=== PATIENT | female | born 1940 | race Caucasian/White ===

== ENCOUNTER 2016-10-02 21:28 | Emergency (ER) | payer OTHER ==
[~2016-10-02] VITALS: Ht 162.5 cm; Wt 113.9 kg
[~2016-10-02 21:28] MED LIST: AMOXICOT500 MG PO; APRESOLINE PO; ASPIRIN81 M1 PO; BACTRIM DS 8001 TA1 PO; CARVEDILOL25 MG PO; CENTRUM SILVER1 TA1 PO; COREG25 MG PO; COZAAR25 MG PO; DITROPAN XL10 MG PO; DITROPAN5 MG PO; DURICEF500 MG PO; DYAZIDE 25 MG-31 CAP PO; GLUCOTROL XL10 MG PO; HYDRALAZINE HCL25 MG PO; IMDUR30 MG PO; LASIX40 MG PO; LISINOPRIL20 MG PO; MEDROL DOSEPAK4 MG PO; MULTIVITAMIN1 CTB PO; MYCOLOG CREAM 115 GM; OCUVITE1 TA1 PO; PERCOCET 325 MG1 TA2 PO; PRESERVISION1 SGL PO; PRINIVIL20 MG PO; TORADOL10 MG PO; ULTRAM50 MG PO; VICODIN 5/500 505 MG PO; VOLTAREN50 M1 PO; XANAX XR0.5 MG PO; ZOLOFT25 MG PO
[2016-10-02 21:39] VITALS: BP 167/85
== END 2016-10-02 22:47 | disposition home or self-care (01) ==
LOC: ED 21:28
DX: S80.11XA Contusion of right lower leg, initial encounter (principal); E11.9 Type 2 diabetes mellitus without complications; Z90.710 Acquired absence of both cervix and uterus; Z96.653 Presence of artificial knee joint, bilateral; Z79.899 Other long term (current) drug therapy; Z79.82 Long term (current) use of aspirin; Z88.5 Allergy status to narcotic agent; Z88.8 Allergy status to other drugs, medicaments and biological substances; X58.XXXA Exposure to other specified factors, initial encounter; Y93.89 Activity, other specified; Y92.89 Other specified places as the place of occurrence of the external cause; Y99.9 Unspecified external cause status

== ENCOUNTER 2017-07-15 21:19 | Emergency (ER) | payer OTHER ==
[~2017-07-15] VITALS: Ht 162.5 cm; Wt 114.3 kg
[2017-07-15] MEDS ORDERED: NORCO 5-325 TA1 EACH PO (22:51)
[2017-07-15 23:00] VITALS: BP 158/63
[2017-07-15 23:18] LABS: CREATININE 1.58 mg/dL (0.55-1.02); POTASSIUM 3.9 mmol/L (3.5-5.1)
== END 2017-07-15 23:21 | disposition home or self-care (01) ==
LOC: ED 21:19
PROVIDERS: Emergency Medicine Emergency Medical Services
DX: S80.01XA Contusion of right knee, initial encounter (principal); S50.311A Abrasion of right elbow, initial encounter; M25.511 Pain in right shoulder; Z90.710 Acquired absence of both cervix and uterus; Z98.890 Other specified postprocedural states; Z96.653 Presence of artificial knee joint, bilateral; Z79.899 Other long term (current) drug therapy; Z79.82 Long term (current) use of aspirin; Z88.5 Allergy status to narcotic agent; Z88.8 Allergy status to other drugs, medicaments and biological substances; Z99.81 Dependence on supplemental oxygen; W19.XXXA Unspecified fall, initial encounter; Y93.01 Activity, walking, marching and hiking; Y92.098 Other place in other non-institutional residence as the place of occurrence of the external cause; Y99.9 Unspecified external cause status

== ENCOUNTER 2020-07-07 10:00 | Inpatient (IN) | payer MEDICARE ==
[~2020-07-07] VITALS: Ht 162.5 cm; Wt 111.3 kg
[2020-07-07] VITALS (7 sets, daily range): BP systolic 121–139; BP diastolic 52–70
[~2020-07-07 10:00] MED LIST changes: +APRESOLINE25 MG PO; +GLUCOTROL XL5 MG PO; -HYDRALAZINE HCL25 MG PO; +NORCO 5-325 TA1 EACH PO; +ZOLOFT100 MG PO; -ZOLOFT25 MG PO
[2020-07-07] MEDS ORDERED: PROTONIX40 MG PO (10:05)
[2020-07-07 11:11] LABS: BASO % 0.5 % (0.0-1.0); EOS % 0.3 % (1.0-4.0); LYMPH # 0.5 10*3/uL (1.3-4.4); LYMPH % 5.8 % (27.0-41.0); MEAN CELL VOLUME 89.4 fl (81.0-99.0); MEAN CORPUSCULAR HGB 27.5 pg (27.0-31.0); MEAN CORPUSCULAR HGB CONC 30.8 g/dl (33.0-37.0); MEAN PLATELET VOLUME 9.9 fl (9.6-12.3); MONO # 1.2 10*3/uL (0.1-1.0); MONO % 13.4 % (3.0-9.0); NEUT # 6.9 10*3/uL (2.3-7.9); NEUT % 79.8 % (47.0-73.0); PLATELET COUNT AUTOMATED 253 10*3/uL (130-400); RED BLOOD COUNT 4.36 10*6/uL (4.10-5.10); RED CELL DISTRI WIDTH 14.1 % (0-14.5); WHITE BLOOD COUNT 8.6 10*3/uL (4.8-10.8)
[2020-07-07 11:43] LABS: ALBUMIN 2.8 gm/dl (3.1-4.5); CREATININE 1.15 mg/dL (0.55-1.02); POTASSIUM 3.9 mmol/L (3.5-5.1); TOTAL PROTEIN 6.9 gm/dL (6.4-8.2)
[2020-07-07 11:48] LABS: TROPONIN I 0.13 ng/ml (<0.045)
[2020-07-07 11:59] LABS: BILIRUBIN Negative (Negative); BLOOD Negative (Negative); CLARITY Clear (Clear); COLOR Yellow (Yellow); GLUCOSE Negative (Negative); KETONE Negative (Negative); LEUKO ESTERASE Negative (Negative); NITRITE Negative (Negative)
[2020-07-07 12:15] LABS: BACTERIA 1+; HYALINE CAST 0-2
[2020-07-08] VITALS: BP 118/52
[2020-07-08 05:48] LABS: ALBUMIN 2.4 gm/dl (3.1-4.5); BUN 17 mg/dl (7-24); CHLORIDE 109 mmol/L (98-107); CHOLESTEROL 143 mg/dL (<200); CREATININE 1.05 mg/dL (0.55-1.02); HDL CHOLESTEROL 51 mg/dl (40-60); LDL CHOLESTEROL 80 mg/dL (9-159); POTASSIUM 3.8 mmol/L (3.5-5.1); SGOT/AST 16 IU/L (3-35); SGPT/ALT 18 U/L (12-78); SODIUM 144 mmol/L (136-145); TOTAL PROTEIN 6.3 gm/dL (6.4-8.2); TRIGLYCERIDES 58 mg/dl (<150); VLDL CHOLESTEROL 12 mg/dL (6-40)
[2020-07-08 05:53] LABS: ALKALINE PHOSPHATASE 65 U/L (45-117); THYROID STIM HORMONE (HS) 0.904 uIU/ml (0.358-4.75)
[2020-07-08 06:05] LABS: HEMATOCRIT 35.8 % (37.0-47.0); MEAN CELL VOLUME 90.6 fl (81.0-99.0); MEAN CORPUSCULAR HGB 27.3 pg (27.0-31.0); MEAN CORPUSCULAR HGB CONC 30.2 g/dl (33.0-37.0); MEAN PLATELET VOLUME 10.7 fl (9.6-12.3); PLATELET COUNT AUTOMATED 233 10*3/uL (130-400); RED BLOOD COUNT 3.95 10*6/uL (4.10-5.10); RED CELL DISTRI WIDTH 14.5 % (0-14.5); WHITE BLOOD COUNT 11.7 10*3/uL (4.8-10.8)
[2020-07-08 06:24] LABS: ACT PARTIAL THROMBO TIME 30.3 SECONDS (20.0-32.1); INTERNATIONAL NORM RATIO 1.1 (2.0-3.5)
[2020-07-08 06:55] LABS: PLATELET SUFFICIENCY NORMAL (NORMAL); TOTAL CELLS COUNTED 100 #CELLS
[2020-07-08 08:00] VITALS: BP 146/60
[2020-07-08 09:19] LABS: VITAMIN D, 25-HYDROXY 28.4 ng/mL (30-100)
[2020-07-08 12:00] VITALS: BP 127/52
[2020-07-08 16:00] VITALS: BP 112/48
[2020-07-08 18:16] VITALS: BP 127/51
[2020-07-08 20:00] VITALS: BP 103/36
[2020-07-09] VITALS (9 sets, daily range): BP systolic 94–152; BP diastolic 38–68
[2020-07-09 06:15] LABS: CREATININE 1.3 mg/dL (0.55-1.02); POTASSIUM 3.6 mmol/L (3.5-5.1); TOTAL PROTEIN 6.1 gm/dL (6.4-8.2)
[2020-07-09 06:24] LABS: BASO % 0.2 % (0.0-1.0); EOS % 0.1 % (1.0-4.0); HEMATOCRIT 35.9 % (37.0-47.0); LYMPH # 0.8 10*3/uL (1.3-4.4); LYMPH % 5.3 % (27.0-41.0); MEAN CELL VOLUME 92.5 fl (81.0-99.0); MEAN CORPUSCULAR HGB 27.8 pg (27.0-31.0); MEAN CORPUSCULAR HGB CONC 30.1 g/dl (33.0-37.0); MEAN PLATELET VOLUME 10.8 fl (9.6-12.3); MONO # 1.4 10*3/uL (0.1-1.0); MONO % 9.4 % (3.0-9.0); NEUT # 12.8 10*3/uL (2.3-7.9); NEUT % 84.3 % (47.0-73.0); PLATELET COUNT AUTOMATED 223 10*3/uL (130-400); RED BLOOD COUNT 3.88 10*6/uL (4.10-5.10); RED CELL DISTRI WIDTH 14.6 % (0-14.5); WHITE BLOOD COUNT 15.1 10*3/uL (4.8-10.8)
[2020-07-10] VITALS: BP 146/55
[2020-07-10 05:40] LABS: ALBUMIN 1.8 gm/dl (3.1-4.5); BILIRUBIN, DIRECT 0.6 mg/dL (0.0-0.2); CREATININE 1.18 mg/dL (0.55-1.02); POTASSIUM 3.5 mmol/L (3.5-5.1); TOTAL PROTEIN 6.1 gm/dL (6.4-8.2)
[2020-07-10 06:16] LABS: BASO % 0.1 % (0.0-1.0); HEMATOCRIT 36.3 % (37.0-47.0); LYMPH # 0.9 10*3/uL (1.3-4.4); MEAN CELL VOLUME 93.6 fl (81.0-99.0); MEAN CORPUSCULAR HGB 27.8 pg (27.0-31.0); MEAN CORPUSCULAR HGB CONC 29.8 g/dl (33.0-37.0); MEAN PLATELET VOLUME 10.9 fl (9.6-12.3); MONO # 1.3 10*3/uL (0.1-1.0); MONO % 8.8 % (3.0-9.0); NEUT # 12.1 10*3/uL (2.3-7.9); NEUT % 84.4 % (47.0-73.0); PLATELET COUNT AUTOMATED 259 10*3/uL (130-400); RED BLOOD COUNT 3.88 10*6/uL (4.10-5.10); RED CELL DISTRI WIDTH 14.6 % (0-14.5); WHITE BLOOD COUNT 14.3 10*3/uL (4.8-10.8)
[2020-07-10 08:00] VITALS: BP 154/75
[2020-07-10 12:00] VITALS: BP 113/72
[2020-07-10 16:00] VITALS: BP 111/68
[2020-07-10 20:00] VITALS: BP 84/40
[2020-07-11] VITALS: BP 113/54
[2020-07-11 05:55] LABS: ALBUMIN 1.7 gm/dl (3.1-4.5); CREATININE 1.43 mg/dL (0.55-1.02); POTASSIUM 3.3 mmol/L (3.5-5.1); TOTAL PROTEIN 5.7 gm/dL (6.4-8.2)
[2020-07-11 06:18] LABS: BASO % 0.2 % (0.0-1.0); EOS % 0.1 % (1.0-4.0); LYMPH # 0.8 10*3/uL (1.3-4.4); LYMPH % 9.1 % (27.0-41.0); MEAN CORPUSCULAR HGB 27.3 pg (27.0-31.0); MEAN CORPUSCULAR HGB CONC 28.8 g/dl (33.0-37.0); MEAN PLATELET VOLUME 10.4 fl (9.6-12.3); MONO # 0.8 10*3/uL (0.1-1.0); MONO % 9.1 % (3.0-9.0); NEUT # 7.4 10*3/uL (2.3-7.9); NEUT % 81.2 % (47.0-73.0); PLATELET COUNT AUTOMATED 230 10*3/uL (130-400); RED BLOOD COUNT 3.37 10*6/uL (4.10-5.10); RED CELL DISTRI WIDTH 14.7 % (0-14.5); WHITE BLOOD COUNT 9.1 10*3/uL (4.8-10.8)
[2020-07-11 07:52] VITALS: BP 125/63
[2020-07-11 12:00] VITALS: BP 134/54
[2020-07-11 16:00] VITALS: BP 127/60
[2020-07-11 20:00] VITALS: BP 130/60
[2020-07-11 23:55] VITALS: BP 126/59
[2020-07-12] VITALS (8 sets, daily range): BP systolic 131–175; BP diastolic 64–86
[2020-07-12 06:12] LABS: BASO % 0.3 % (0.0-1.0); EOS % 0.4 % (1.0-4.0); HEMATOCRIT 34.6 % (37.0-47.0); LYMPH # 0.9 10*3/uL (1.3-4.4); MEAN CELL VOLUME 95.3 fl (81.0-99.0); MEAN CORPUSCULAR HGB 27.5 pg (27.0-31.0); MEAN CORPUSCULAR HGB CONC 28.9 g/dl (33.0-37.0); MEAN PLATELET VOLUME 10.3 fl (9.6-12.3); MONO # 0.8 10*3/uL (0.1-1.0); MONO % 11.8 % (3.0-9.0); NEUT % 74.1 % (47.0-73.0); PLATELET COUNT AUTOMATED 244 10*3/uL (130-400); RED BLOOD COUNT 3.63 10*6/uL (4.10-5.10); RED CELL DISTRI WIDTH 14.7 % (0-14.5); WHITE BLOOD COUNT 6.7 10*3/uL (4.8-10.8)
[2020-07-12 06:13] LABS: POTASSIUM 4.2 mmol/L (3.5-5.1)
[2020-07-12 06:32] LABS: ALBUMIN 1.8 gm/dl (3.1-4.5); CREATININE 1.25 mg/dL (0.55-1.02)
[2020-07-12 06:41] LABS: BILIRUBIN, DIRECT 0.6 mg/dL (0.0-0.2)
[2020-07-12 13:17] LABS: ABG BASE EXCESS -3.9 mmol/L (-2.0-2.0); ARTERIAL BLOOD GAS PH 7.262 (7.35-7.45); ARTERIAL BLOOD GAS PO2 68.6 (80-90)
[2020-07-12 13:27] LABS: ALBUMIN 1.7 gm/dl (3.1-4.5); CREATININE 1.32 mg/dL (0.55-1.02); POTASSIUM 4.7 mmol/L (3.5-5.1); TOTAL PROTEIN 6.7 gm/dL (6.4-8.2)
[2020-07-12 13:32] LABS: TROPONIN I 0.05 ng/ml (<0.045)
[2020-07-12 13:33] LABS: BASO % 0.3 % (0.0-1.0); EOS % 0.1 % (1.0-4.0); HEMATOCRIT 38.4 % (37.0-47.0); LYMPH # 0.7 10*3/uL (1.3-4.4); LYMPH % 8.6 % (27.0-41.0); MEAN CORPUSCULAR HGB 28.2 pg (27.0-31.0); MEAN CORPUSCULAR HGB CONC 29.7 g/dl (33.0-37.0); MEAN PLATELET VOLUME 10.3 fl (9.6-12.3); MONO # 0.7 10*3/uL (0.1-1.0); MONO % 9.1 % (3.0-9.0); NEUT # 6.1 10*3/uL (2.3-7.9); NEUT % 79.7 % (47.0-73.0); PLATELET COUNT AUTOMATED 268 10*3/uL (130-400); RED BLOOD COUNT 4.04 10*6/uL (4.10-5.10); RED CELL DISTRI WIDTH 14.7 % (0-14.5); WHITE BLOOD COUNT 7.7 10*3/uL (4.8-10.8)
[2020-07-12 14:39] LABS: ABG BASE EXCESS -3.7 mmol/L (-2.0-2.0); ARTERIAL BLOOD GAS PH 7.299 (7.35-7.45); ARTERIAL BLOOD GAS PO2 104.1 (80-90)
[2020-07-12 15:43] LABS: BILIRUBIN 1+ (Negative); BLOOD Negative (Negative); CLARITY Cloudy (Clear); COLOR Dark Yellow (Yellow); GLUCOSE Negative (Negative); KETONE Trace (Negative); LEUKO ESTERASE Negative (Negative); NITRITE Negative (Negative); SPECIFIC GRAVITY >= 1.030 (1.001-1.030)
[2020-07-12 16:29] LABS: BACTERIA 1+
[2020-07-12 17:14] LABS: ABG BASE EXCESS -4.2 mmol/L (-2.0-2.0); ARTERIAL BLOOD GAS PH 7.406 (7.35-7.45); ARTERIAL BLOOD GAS PO2 126.4 (80-90)
[2020-07-13] VITALS (10 sets, daily range): BP systolic 104–166; BP diastolic 38–74
[2020-07-13 06:27] LABS: BASO % 0.2 % (0.0-1.0); EOS # 0.1 10*3/uL (0.0-0.4); EOS % 1.1 % (1.0-4.0); HEMATOCRIT 32.2 % (37.0-47.0); LYMPH # 0.8 10*3/uL (1.3-4.4); LYMPH % 13.9 % (27.0-41.0); MEAN CORPUSCULAR HGB 27.4 pg (27.0-31.0); MEAN CORPUSCULAR HGB CONC 29.8 g/dl (33.0-37.0); MEAN PLATELET VOLUME 10.6 fl (9.6-12.3); MONO # 0.8 10*3/uL (0.1-1.0); NEUT % 70.1 % (47.0-73.0); PLATELET COUNT AUTOMATED 266 10*3/uL (130-400); RED CELL DISTRI WIDTH 14.4 % (0-14.5); WHITE BLOOD COUNT 5.7 10*3/uL (4.8-10.8)
[2020-07-13 06:50] LABS: ALBUMIN 1.7 gm/dl (3.1-4.5); CREATININE 1.27 mg/dL (0.55-1.02); POTASSIUM 3.3 mmol/L (3.5-5.1); TOTAL PROTEIN 5.7 gm/dL (6.4-8.2)
[2020-07-13 07:27] LABS: ARTERIAL BLOOD GAS PH 7.406 (7.35-7.45); ARTERIAL BLOOD GAS PO2 113.9 (80-90)
[2020-07-13 07:28] LABS: ABG BASE EXCESS -6.4 mmol/L (-2.0-2.0)
[2020-07-14] VITALS: BP 135/55
[2020-07-14 04:00] VITALS: BP 153/67
[2020-07-14 05:41] LABS: ALBUMIN 1.8 gm/dl (3.1-4.5); CREATININE 1.23 mg/dL (0.55-1.02); POTASSIUM 3.6 mmol/L (3.5-5.1)
[2020-07-14 06:11] LABS: BASO % 0.6 % (0.0-1.0); EOS # 0.2 10*3/uL (0.0-0.4); EOS % 3.1 % (1.0-4.0); LYMPH % 13.6 % (27.0-41.0); MEAN CELL VOLUME 91.2 fl (81.0-99.0); MEAN CORPUSCULAR HGB 27.6 pg (27.0-31.0); MEAN CORPUSCULAR HGB CONC 30.3 g/dl (33.0-37.0); MEAN PLATELET VOLUME 10.3 fl (9.6-12.3); MONO % 14.4 % (3.0-9.0); NEUT # 4.8 10*3/uL (2.3-7.9); NEUT % 67.3 % (47.0-73.0); PLATELET COUNT AUTOMATED 285 10*3/uL (130-400); RED BLOOD COUNT 3.51 10*6/uL (4.10-5.10); RED CELL DISTRI WIDTH 14.9 % (0-14.5); WHITE BLOOD COUNT 7.1 10*3/uL (4.8-10.8)
[2020-07-14 08:00] VITALS: BP 147/69
[2020-07-14 12:00] VITALS: BP 123/44
[2020-07-14 16:00] VITALS: BP 120/60
[2020-07-14 20:00] VITALS: BP 136/60
[2020-07-15] VITALS: BP 122/63
[2020-07-15 04:00] VITALS: BP 127/58
[2020-07-15 06:29] LABS: BASO % 0.4 % (0.0-1.0); EOS # 0.3 10*3/uL (0.0-0.4); EOS % 4.5 % (1.0-4.0); HEMATOCRIT 31.6 % (37.0-47.0); LYMPH % 13.4 % (27.0-41.0); MEAN CELL VOLUME 92.4 fl (81.0-99.0); MEAN CORPUSCULAR HGB 27.5 pg (27.0-31.0); MEAN CORPUSCULAR HGB CONC 29.7 g/dl (33.0-37.0); MEAN PLATELET VOLUME 10.3 fl (9.6-12.3); MONO # 0.9 10*3/uL (0.1-1.0); MONO % 12.9 % (3.0-9.0); NEUT # 4.9 10*3/uL (2.3-7.9); NEUT % 67.5 % (47.0-73.0); PLATELET COUNT AUTOMATED 286 10*3/uL (130-400); RED BLOOD COUNT 3.42 10*6/uL (4.10-5.10); WHITE BLOOD COUNT 7.2 10*3/uL (4.8-10.8)
[2020-07-15 06:38] LABS: ALBUMIN 1.7 gm/dl (3.1-4.5); ALKALINE PHOSPHATASE 159 U/L (45-117); BUN 22 mg/dl (7-24); CHLORIDE 114 mmol/L (98-107); CREATININE 0.89 mg/dL (0.55-1.02); POTASSIUM 3.6 mmol/L (3.5-5.1); SGOT/AST 44 IU/L (3-35); SGPT/ALT 76 U/L (12-78); SODIUM 149 mmol/L (136-145); TOTAL PROTEIN 5.6 gm/dL (6.4-8.2)
[2020-07-15 08:00] VITALS: BP 118/66
[2020-07-15 12:00] VITALS: BP 114/50
[2020-07-15 16:00] VITALS: BP 119/49
[2020-07-15 20:00] VITALS: BP 121/40
[2020-07-15 23:45] LABS: BASO % 0.1 % (0.0-1.0); EOS # 0.2 10*3/uL (0.0-0.4); EOS % 1.7 % (1.0-4.0); HEMATOCRIT 33.5 % (37.0-47.0); LYMPH # 0.8 10*3/uL (1.3-4.4); LYMPH % 7.9 % (27.0-41.0); MEAN CELL VOLUME 93.8 fl (81.0-99.0); MEAN CORPUSCULAR HGB 27.5 pg (27.0-31.0); MEAN CORPUSCULAR HGB CONC 29.3 g/dl (33.0-37.0); MEAN PLATELET VOLUME 10.1 fl (9.6-12.3); MONO # 1.3 10*3/uL (0.1-1.0); MONO % 12.5 % (3.0-9.0); NEUT # 7.6 10*3/uL (2.3-7.9); NEUT % 75.9 % (47.0-73.0); PLATELET COUNT AUTOMATED 300 10*3/uL (130-400); RED BLOOD COUNT 3.57 10*6/uL (4.10-5.10); RED CELL DISTRI WIDTH 14.7 % (0-14.5)
[2020-07-16] VITALS: BP 184/70
[2020-07-16 00:10] VITALS: BP 176/84
[2020-07-16 05:32] VITALS: BP 114/62
[2020-07-16 07:01] LABS: BASO % 0.3 % (0.0-1.0); EOS # 0.2 10*3/uL (0.0-0.4); EOS % 1.4 % (1.0-4.0); LYMPH # 0.9 10*3/uL (1.3-4.4); MEAN CELL VOLUME 93.8 fl (81.0-99.0); MEAN CORPUSCULAR HGB 27.6 pg (27.0-31.0); MEAN CORPUSCULAR HGB CONC 29.4 g/dl (33.0-37.0); MEAN PLATELET VOLUME 10.3 fl (9.6-12.3); MONO # 1.1 10*3/uL (0.1-1.0); MONO % 10.7 % (3.0-9.0); NEUT # 8.1 10*3/uL (2.3-7.9); NEUT % 77.2 % (47.0-73.0); PLATELET COUNT AUTOMATED 311 10*3/uL (130-400); RED BLOOD COUNT 3.84 10*6/uL (4.10-5.10); RED CELL DISTRI WIDTH 14.6 % (0-14.5); WHITE BLOOD COUNT 10.5 10*3/uL (4.8-10.8)
[2020-07-16 07:14] LABS: ALBUMIN 1.8 gm/dl (3.1-4.5); BUN 18 mg/dl (7-24); CHLORIDE 113 mmol/L (98-107); CREATININE 0.76 mg/dL (0.55-1.02); POTASSIUM 3.5 mmol/L (3.5-5.1); SGOT/AST 23 IU/L (3-35); SGPT/ALT 67 U/L (12-78); SODIUM 143 mmol/L (136-145); TOTAL PROTEIN 6.2 gm/dL (6.4-8.2)
[2020-07-16 07:15] LABS: ALKALINE PHOSPHATASE 143 U/L (45-117)
[2020-07-16 08:12] LABS: ACT PARTIAL THROMBO TIME 32.7 SECONDS (20.0-32.1); INTERNATIONAL NORM RATIO 1.1 (2.0-3.5)
[2020-07-16 12:00] VITALS: BP 112/66
[2020-07-16 16:00] VITALS: BP 188/93
[2020-07-16 20:00] VITALS: BP 180/88
[2020-07-17] VITALS: BP 190/76
[2020-07-17 06:48] LABS: HEMATOCRIT 32.4 % (37.0-47.0); MEAN CELL VOLUME 92.8 fl (81.0-99.0); MEAN CORPUSCULAR HGB 27.2 pg (27.0-31.0); MEAN CORPUSCULAR HGB CONC 29.3 g/dl (33.0-37.0); MEAN PLATELET VOLUME 10.5 fl (9.6-12.3); PLATELET COUNT AUTOMATED 397 10*3/uL (130-400); RED BLOOD COUNT 3.49 10*6/uL (4.10-5.10); WHITE BLOOD COUNT 16.3 10*3/uL (4.8-10.8)
[2020-07-17 07:07] LABS: ALBUMIN 1.6 gm/dl (3.1-4.5); ALKALINE PHOSPHATASE 108 U/L (45-117); BUN 21 mg/dl (7-24); CHLORIDE 111 mmol/L (98-107); CREATININE 0.82 mg/dL (0.55-1.02); SGOT/AST 22 IU/L (3-35); SGPT/ALT 44 U/L (12-78); SODIUM 144 mmol/L (136-145); TOTAL PROTEIN 5.6 gm/dL (6.4-8.2)
[2020-07-17 07:32] LABS: BURR CELLS FEW; PLATELET SUFFICIENCY NORMAL (NORMAL); TOTAL CELLS COUNTED 100 #CELLS
[2020-07-17 07:55] VITALS: BP 100/48
[2020-07-17 08:00] VITALS: BP 125/54
[2020-07-17 12:00] VITALS: BP 122/58
[2020-07-17 16:00] VITALS: BP 117/54
[2020-07-17 20:00] VITALS: BP 109/49
[2020-07-18] VITALS: BP 121/50
[2020-07-18 00:10] VITALS: BP 114/48
[2020-07-18 06:37] LABS: EOS % 0.3 % (1.0-4.0); HEMATOCRIT 26.1 % (37.0-47.0); LYMPH # 0.9 10*3/uL (1.3-4.4); LYMPH % 7.6 % (27.0-41.0); MEAN CELL VOLUME 93.2 fl (81.0-99.0); MEAN CORPUSCULAR HGB 27.9 pg (27.0-31.0); MEAN CORPUSCULAR HGB CONC 29.9 g/dl (33.0-37.0); MEAN PLATELET VOLUME 10.6 fl (9.6-12.3); MONO # 1.3 10*3/uL (0.1-1.0); MONO % 11.5 % (3.0-9.0); NEUT # 9.2 10*3/uL (2.3-7.9); NEUT % 79.7 % (47.0-73.0); PLATELET COUNT AUTOMATED 347 10*3/uL (130-400); RED CELL DISTRI WIDTH 15.2 % (0-14.5); WHITE BLOOD COUNT 11.5 10*3/uL (4.8-10.8)
[2020-07-18 07:06] LABS: CREATININE 1.62 mg/dL (0.55-1.02); POTASSIUM 3.7 mmol/L (3.5-5.1)
[2020-07-18 08:00] VITALS: BP 112/44
[2020-07-18 12:00] VITALS: BP 119/40
[2020-07-18] MEDS ORDERED: CIPRO500 MG PO (13:59)
[2020-07-18] MEDS ORDERED: DOK COLACE100 MG PO (13:59)
[2020-07-18] MEDS ORDERED: FLAGYL500 MG PO (13:59)
== END 2020-07-18 17:30 | DRG 420 ==
LOC: ED 10:00 → 4E 13:52 → 5E 13:52 → EDHOLD 13:52 → 4E 14:03 → ICCU 07-12 12:09 → 5E 07-15 14:18
PROVIDERS: Emergency Medicine; Hospitalist; Internal Medicine; Internal Medicine Gastroenterology; Registered Nurse; Student in an Organized Health Care Education/Training Program; Surgery; ADMIT Family Medicine; ATTEND Family Medicine
PROC: 0DB78ZX Excision of Stomach, Pylorus, Via Natural or Artificial Opening Endoscopic, Diagnostic (ICD-10-PCS; 2020-07-09)
PROC: 0FJ44ZZ Inspection of Gallbladder, Percutaneous Endoscopic Approach (ICD-10-PCS; principal; 2020-07-12)
PROC: 5A1935Z Respiratory Ventilation, Less than 24 Consecutive Hours (ICD-10-PCS; 2020-07-12)
PROC: 0BH18EZ Insertion of Endotracheal Airway into Trachea, Via Natural or Artificial Opening Endoscopic (ICD-10-PCS; 2020-07-12)
DX: K80.62 Calculus of gallbladder and bile duct with acute cholecystitis without obstruction (principal); E43 Unspecified severe protein-calorie malnutrition; K57.31 Diverticulosis of large intestine without perforation or abscess with bleeding; I50.22 Chronic systolic (congestive) heart failure; I48.19 Other persistent atrial fibrillation; E87.0 Hyperosmolality and hypernatremia; I13.0 Hypertensive heart and chronic kidney disease with heart failure and stage 1 through stage 4 chronic kidney disease, or unspecified chronic kidney disease; N18.31 Chronic kidney disease, stage 3a; M26.609 Unspecified temporomandibular joint disorder, unspecified side; I44.7 Left bundle-branch block, unspecified; Z96.653 Presence of artificial knee joint, bilateral; J43.9 Emphysema, unspecified; E11.22 Type 2 diabetes mellitus with diabetic chronic kidney disease; E11.65 Type 2 diabetes mellitus with hyperglycemia; K29.70 Gastritis, unspecified, without bleeding; T18.108A Unspecified foreign body in esophagus causing other injury, initial encounter; I95.9 Hypotension, unspecified; R77.8 Other specified abnormalities of plasma proteins; Z20.822 Contact with and (suspected) exposure to COVID-19; K59.00 Constipation, unspecified; Z88.6 Allergy status to analgesic agent; Z88.8 Allergy status to other drugs, medicaments and biological substances; Z90.49 Acquired absence of other specified parts of digestive tract; Z90.710 Acquired absence of both cervix and uterus; Z82.49 Family history of ischemic heart disease and other diseases of the circulatory system; Z80.3 Family history of malignant neoplasm of breast; X58.XXXA Exposure to other specified factors, initial encounter; Y93.89 Activity, other specified; Y92.89 Other specified places as the place of occurrence of the external cause; Y99.8 Other external cause status; Z68.38 Body mass index [BMI] 38.0-38.9, adult; R00.1 Bradycardia, unspecified

== ENCOUNTER 2021-02-23 08:58 | Emergency (ER) | payer MEDICARE ==
[~2021-02-23] VITALS: Wt 85.4 kg
[~2021-02-23 08:58] MED LIST changes: +ACETAMINOPHEN650 M5 PO; +ALBUTEROL2.5 MG/0.5 INH; +ANORO ELLIPTA1 EACH INH; +BUSPAR5 MG PO; +CIPRO500 MG PO; +CLARITIN10 MG PO; +COLACE100 MG PO; +COREG6.25 MG PO; +DOK COLACE100 MG PO; +FLAGYL500 MG PO; +FLONASE ALLERG9.9 ML NAS; +HUMALOG100 UNIT/2 SQ; +INSULIN LI100 UNIT/1 SQ; +Ipratropium Brom3 ML INH; +MIRALAX17 GM PO; +OSTERA TABLET1 EACH PO; +PROMETHAZINE25 M1 PO; +PROTONIX40 MG PO; +RENAL VITAMIN0.8 MG PO; +ZOFRAN4 MG PO; +[UNRECOGNIZED DRUG - OTHER] PO
[2021-02-23 09:05] VITALS: BP 105/53
[2021-02-23 09:35] LABS: BASO % 0.7 % (0.0-1.0); EOS # 0.2 10*3/uL (0.0-0.4); EOS % 3.3 % (1.0-4.0); HEMATOCRIT 27.8 % (37.0-47.0); LYMPH # 0.7 10*3/uL (1.3-4.4); LYMPH % 12.1 % (27.0-41.0); MEAN CELL VOLUME 98.6 fl (81.0-99.0); MEAN CORPUSCULAR HGB 29.4 pg (27.0-31.0); MEAN CORPUSCULAR HGB CONC 29.9 g/dl (33.0-37.0); MEAN PLATELET VOLUME 9.4 fl (9.6-12.3); MONO # 0.9 10*3/uL (0.1-1.0); MONO % 16.1 % (3.0-9.0); NEUT # 3.9 10*3/uL (2.3-7.9); NEUT % 67.6 % (47.0-73.0); PLATELET COUNT AUTOMATED 316 10*3/uL (130-400); RED BLOOD COUNT 2.82 10*6/uL (4.10-5.10); RED CELL DISTRI WIDTH 15.4 % (0-14.5); WHITE BLOOD COUNT 5.8 10*3/uL (4.8-10.8)
[2021-02-23 09:50] LABS: ALBUMIN 1.9 gm/dl (3.1-4.5); CREATININE 3.23 mg/dL (0.55-1.02); TOTAL PROTEIN 6.7 gm/dL (6.4-8.2)
== END 2021-02-23 11:19 | disposition short-term general hospital (02) ==
LOC: ED 08:58
PROVIDERS: Emergency Medicine
DX: T81.41XA Infection following a procedure, superficial incisional surgical site, initial encounter (principal); E11.22 Type 2 diabetes mellitus with diabetic chronic kidney disease; N18.5 Chronic kidney disease, stage 5; J44.9 Chronic obstructive pulmonary disease, unspecified; Z88.8 Allergy status to other drugs, medicaments and biological substances; Y92.89 Other specified places as the place of occurrence of the external cause